=== PATIENT | male | born 1955 | race Two or more races ===

== ENCOUNTER 2024-12-29 08:50 | Emergency (ER) | payer OTHER ==
[~2024-12-29] VITALS: Ht 170.2 cm; Wt 59.4 kg
[2024-12-29] MEDS ORDERED: DEXAMETHASONE SODIUM PHOSP/PF 10 MG/ML VIAL IJ ONE (09:45)
[2024-12-29] MEDS ORDERED: ORPHENADRINE CITRATE 30 MG/ML AMPUL IM ONE (09:45)
[2024-12-29] MEDS ORDERED: KETOROLAC TROMETHAMINE 30 MG VIAL IM ONE (09:45)
[2024-12-29] MEDS ORDERED: KETOROLAC TROMETHAMINE 30 MG VIAL ONE (10:08)
[2024-12-29] MEDS ORDERED: ORPHENADRINE CITRATE 30 MG/ML AMPUL ONE (10:09)
[2024-12-29] MEDS ORDERED: DEXAMETHASONE SODIUM PHOSPHATE 4 MG/ML VIAL ONE (10:09)
[2024-12-29] MEDS ORDERED: TIZANIDINE HCL4 M1 PO (12:09)
[2024-12-29] MEDS ORDERED: MEDROLPACK PO (12:09)
[2024-12-29] MEDS ORDERED: KETO10TA2 PO (12:09)
== END 2024-12-29 12:34 | disposition home or self-care (01) ==
LOC: ER 08:50
DX: M51.17 Intervertebral disc disorders with radiculopathy, lumbosacral region (principal); I10 Essential (primary) hypertension; E16.1 Other hypoglycemia